=== PATIENT | male | born 1985 | race Hispanic/Latino ===

== ENCOUNTER 2018-08-06 23:15 | Inpatient (IN) | payer SELFPAY ==
[2018-08-07 00:10] LABS: #Eosinphils 0.1 thou/uL (0.0-0.7); #Lymphocytes 0.9 thou/uL (1.20-3.40); #Monocytes 0.5 thou/uL (0.11-0.59); #Neutrophils 7.6 thou/uL (1.40-6.50); %Basophils 0.3 % (0.0-1.0); %Eosinophils 0.9 % (0.0-10.0); %Lymphocytes 9.4 % (21.0-51.0); %Monocytes 5.4 % (0.0-10.0); Hemoglobin 15.5 g/dL (14.0-18.0); Mean Corpuscular HGB CONC 32.9 g/dL (32.0-36.0); Mean Corpuscular Hemoglobin 27.9 pg (27.0-31.0); Mean Platelet Volume 8.1 fL (7.4-10.4); Platelet Count 178 thou/uL (130-400); RBC Distribution Width 12.4 % (11.5-14.5); Red Blood Cell (RBC) Count 5.55 mill/uL (4.70-6.10); White Blood Cell (WBC) Count 9.1 thou/uL (4.8-10.8)
[2018-08-07 00:31] LABS: ALT (SGPT) 1052 U/L (8-55); AST (SGOT) 555 U/L (5-34); Albumin 4.5 g/dL (3.5-5.0); Alkaline Phosphatase 214 U/L (40-150); Anion Gap 11 mmol/L (10-20); BUN (Urea Nitrogen) 12 mg/dL (8.9-20.6); Bilirubin, Total 6.2 mg/dL (0.2-1.2); Calc. Creatinine Clearance 0 mL/min (70-130); Calcium 9.4 mg/dL (7.8-10.44); Carbon Dioxide 27 mmol/L (22-29); Chloride 102 mmol/L (98-107); Estimated GFR-MDRD Greater than 90; Globulin 3.6 g/dL (2.4-3.5); Glucose 131 mg/dL (70-105); Lipase 757 U/L (8-78); Potassium 3.8 mmol/L (3.5-5.1); Protein, Total 8.1 g/dL (6.0-8.3); Sodium 136 mmol/L (136-145)
[2018-08-07] MEDS ORDERED: CEFAZOLIN 1 GM VIAL ONE (01:23)
[2018-08-07] MEDS ORDERED: Ondansetron PF 4 MG/2 ML Vial ONE ×2 (01:23→14:49)
[2018-08-07] MEDS ORDERED: Morphine 4 MG/ML VIAL ONE (01:23)
[2018-08-07] MEDS ORDERED: Ketorolac Tromethamine 30 MG/ML VIAL ONE (01:23)
[2018-08-07 01:43] LABS: Acetaminophen Less than 6.0 mcg/mL (10.0-30.0); Alcohol Less than 10 mg/dL (Less than 10); Salicylate Less than 8.0 mg/dL (15.0-30.0)
[2018-08-07 01:51] LABS: PTT 28.1 SEC (22.9-36.1); Prothrombin Time 13.1 SEC (12.0-14.7)
[2018-08-07 02:11] LABS: Bilirubin Large (Negative); Blood, Urine Moderate (Negative); Clarity CLEAR (Clear); Glucose, Urine (Dipstick) 100 mg/dL (Negative); Leukocyte Small (Negative); Nitrite Positive (Negative); Protein, Urine (Dipstick) 100 mg/dL (Neg-Trace); Specific Gravity, Urine 1.034 (1.002-1.036); pH, Urine 5.5 (5.0-9.0)
[2018-08-07 02:13] LABS: Bacteria/HPF None Seen HPF (None Seen); Hyaline Casts/LPF 0-3 HYALINE CAST LPF (0-3 Hyaline); Pathc Cast-AUWi Flag 0.13 (0-2.49); Squamous Epithelial None Seen HPF (0-3); WBC/HPF 0-3 HPF (0-3)
[2018-08-07 02:17] LABS: HBCM Index 0.08 S/CO (0-0.79); HBSAg Index 0.31 S/CO (0-0.99); Hep A IgM AB Non-Reactive (NonReactive); Hep A IgM S/CO 0.17 S/CO (0-0.79); Hep B Surf Ag Non-Reactive S/CO (NonReactive); Hep C IgG Ab Non-Reactive (NonReactive); Hep C Index 0.12 S/CO (0-0.79); Hepatitis B Core IgM Abs Non-Reactive (NonReactive)
[2018-08-07] MEDS ORDERED: Ondansetron PF 4 MG/2 ML Vial IVP PRN ×2 (02:32→10:10)
[2018-08-07] MEDS ORDERED: Acetaminophen 325 MG TAB PO PRN (02:32)
[2018-08-07] MEDS ORDERED: Morphine 4 MG/ML VIAL SLOW IVP PRN (02:35)
--- NOTE | 2018-08-07 02:38 | PDOC.EVN ---
Event Note - Event Note Event Note: H&P [id number]
[2018-08-07] MEDS ORDERED: Promethazine HCl 25 MG/ML VIAL ONE (03:08)
[2018-08-07 03:52] LABS: #Eosinphils 0.1 thou/uL (0.0-0.7); #Lymphocytes 0.8 thou/uL (1.20-3.40); #Monocytes 0.4 thou/uL (0.11-0.59); #Neutrophils 7.6 thou/uL (1.40-6.50); %Basophils 0.1 % (0.0-1.0); %Eosinophils 0.6 % (0.0-10.0); %Lymphocytes 8.7 % (21.0-51.0); %Neutrophils 86.6 % (42.0-75.0); Hemoglobin 14.4 g/dL (14.0-18.0); Mean Corpuscular HGB CONC 32.8 g/dL (32.0-36.0); Mean Corpuscular Hemoglobin 27.9 pg (27.0-31.0); Mean Corpuscular Volume 85.2 fL (78.0-98.0); Mean Platelet Volume 8.3 fL (7.4-10.4); Platelet Count 177 thou/uL (130-400); RBC Distribution Width 12.3 % (11.5-14.5); Red Blood Cell (RBC) Count 5.16 mill/uL (4.70-6.10); White Blood Cell (WBC) Count 8.8 thou/uL (4.8-10.8)
[2018-08-07 04:07] LABS: Anion Gap 13 mmol/L (10-20); BUN (Urea Nitrogen) 13 mg/dL (8.9-20.6); Calc. Creatinine Clearance 0 mL/min (70-130); Calcium 9.1 mg/dL (7.8-10.44); Carbon Dioxide 24 mmol/L (22-29); Chloride 103 mmol/L (98-107); Estimated GFR-MDRD Greater than 90; Glucose 138 mg/dL (70-105); Potassium 3.3 mmol/L (3.5-5.1); Sodium 137 mmol/L (136-145)
[2018-08-07 05:46] VITALS: BMI 40.2
[2018-08-07] MEDS: MEROPENEM 1 GM/50 ML 1 GM in Premix Bag 1 BAG IVPB SCH ×3 (06:24→21:22)
[2018-08-07] MEDS: D5 1/2 NS w/20 mEq KCL 1,000 ML IV SCH ×3 (08:36→23:22)
--- NOTE | 2018-08-07 09:43 | ULT ---
RIGHT UPPER QUADRANT ABDOMINAL PAIN: INDICATIONS: Epigastric abdominal pain. FINDINGS: There is fatty infiltration of the liver. There are small stones within the gallbladder neck, withou t evidence of a sonographic Moe sign, gallbladder wall thickening, or pericholecystic edema. The common bile duct measures 5.8 mm, which is normal. The right kidney measures 11.2 cm in length. No focal renal lesion or hydronephrosis is evident. The pancreas is largely obscured by overlying bowel gas. IMPRESSION: 1. Fatty liver. 2. Cholelithiasis. POS: BH
--- NOTE | 2018-08-07 09:47 | CT ---
CT OF THE ABDOMEN AND PELVIS WITH IV CONTRAST: INDICATION: Sharp abdominal pain radiating to the back. COMPARISON: None. FINDINGS: Lung bases are clear. There is fatty infiltration of the liver. Known gallstones within the gallbladder neck are not as we ll seen as on the recently performed right upper quadrant ultrasound dated 06/09/2018. The pancreas, adrenal glands, and kidneys are normal-appearing. The spleen is normal-appearing. No free fluid or enlarged lymph nodes are evident. There is a normal appendix in the right lower quadrant. The bladder is partially decompressed. The rectum and perirectal soft tissues are unremarkable-appearing. The small bowel is of normal caliber. No definite acute osseous abnormality is evident. IMPRESSION: 1. No CT explanation for the patient's abdominal pain. 2. Fatty liver. 3. Normal appendix. POS: BH
[2018-08-07] MEDS ORDERED: Pantoprazole 40 MG VIAL IVP SCH ×2 (10:11→10:15)
--- NOTE | 2018-08-07 10:37 | CON ---
DATE OF CONSULTATION: 08/07/2018 CHIEF COMPLAINT: Epigastric pain. HISTORY OF PRESENT ILLNESS: This is a 33-year-old male who presents with severe epigastric pain since last night after dinner, associated with nausea and vomiting. No change in stools. No fevers or chills. He has never had pain like this before. No known previous known history of gallstones, jaundice, or pancreatitis. Found to have pancreatitis and gallstones on his workup in the emergency room. He denies alcohol. PAST MEDICAL HISTORY: Negative. PAST SURGICAL HISTORY: He denies. MEDICATIONS: Taken daily none. ALLERGIES: NO KNOWN DRUG ALLERGIES. SOCIAL HISTORY: No smoking, alcohol, or other drugs. REVIEW OF SYSTEMS: A 10-system review of systems otherwise negative unless described above. PHYSICAL EXAMINATION: VITAL SIGNS: Blood pressure 106/65, pulse 71, respirations 18, he is afebrile. HEENT: Icteric sclerae. Oropharynx clear. NECK: No lymphadenopathy. CHEST: Clear. HEART: Regular rate and rhythm. ABDOMEN: Soft, tender epigastric with localized guarding without rebound. EXTREMITIES: No ischemia or edema to extremities. LABORATORY DATA: White blood cell count is 8, hemoglobin 14, platelet count is 177. Sodium 137, potassium 3.3, creatinine 0.78 early this morning, bilirubin 6.2, AST and ALT are 5555 and 1052, and alkaline phosphatase 214, lipase 757. Urine shows moderate blood, large bilirubin. CT of the abdomen shows no obvious significant pancreatitis. Ultrasound of the abdomen, fatty liver, cholelithiasis, common bile duct is 5.8 mm. ASSESSMENT: Gallstone pancreatitis. PLAN: No surgery planned for today. I have discussed with Dr. Maximilian Lieberman. He is going to decide whether he needs ERCP or continued observation. Will need cholecystectomy before discharge. We will follow with you. Job ID: [id number]
[2018-08-07 12:17] LABS: ALT (SGPT) 988 U/L (8-55); AST (SGOT) 409 U/L (5-34); Albumin 4.1 g/dL (3.5-5.0); Alkaline Phosphatase 223 U/L (40-150); Anion Gap 10 mmol/L (10-20); BUN (Urea Nitrogen) 15 mg/dL (8.9-20.6); Bilirubin, Total 5.1 mg/dL (0.2-1.2); Calc. Creatinine Clearance 212 mL/min (70-130); Calcium 8.9 mg/dL (7.8-10.44); Carbon Dioxide 28 mmol/L (22-29); Chloride 103 mmol/L (98-107); Estimated GFR-MDRD Greater than 90; Globulin 3.2 g/dL (2.4-3.5); Glucose 112 mg/dL (70-105); Lipase 135 U/L (8-78); Potassium 3.7 mmol/L (3.5-5.1); Protein, Total 7.3 g/dL (6.0-8.3); Sodium 137 mmol/L (136-145)
--- NOTE | 2018-08-07 13:02 | CON ---
DATE OF CONSULTATION: 08/07/2018 CHIEF COMPLAINT: Abdominal pain. HISTORY OF PRESENT ILLNESS: Mr. Julian is a 33-year-old man, who had onset of epigastric sharp pain on Wednesday, 2 days ago. The pain radiates through to his back. He had nausea and vomiting all day yesterday, associated with that. He has had some similar pain on and off for years, which is attributed to acid reflux. However, on presentation to the ER, he was found to have elevated pancreatic enzymes consistent with acute pancreatitis as well as elevated liver tests and gallstones consistent with gallstone pancreatitis. He has had no fever associated with this. No diarrhea, constipation, or lower abdominal pain. His weight has been stable. PAST MEDICAL HISTORY: Otherwise negative. PAST SURGICAL HISTORY: Negative. FAMILY HISTORY: Negative for GI malignancy. SOCIAL HISTORY: No alcohol, tobacco, or drugs. ALLERGIES: NO KNOWN DRUG ALLERGIES. MEDICATIONS: Prior to admission, none. REVIEW OF SYSTEMS: Negative x10 systems reviewed, except as stated in the history of present illness. IMAGING: He had a CT scan of the abdomen and pelvis, which was negative last night. He also had ultrasound of the right upper quadrant, which showed cholelithiasis. Fatty liver was seen. His common bile duct was only 5.8 mm. LABORATORY DATA: White blood cell count 8.8, hemoglobin 14.4, and platelets 177. INR 1.0. Creatinine is 0.86, bilirubin is 5.1 now and it was 6.2 at midnight, AST 409, ALT 988, alkaline phosphatase 223 up from 214, and lipase 757 at midnight and down to 135 now. IMPRESSION: Gallstone pancreatitis. He has significantly elevated transaminases along with a bilirubin that remains greater than 5 even after hydration over the last 12 hours. His transaminases remain close to a 1000 on his ALT and his alkaline phosphatase trended up very slightly. His pain is actually much improved and he very well might have passed a stone. His lipase has trended down. His bile duct was not reported as dilated by the admission ultrasound. Viral hepatitis screen is negative. Given the persistently significantly elevated bilirubin and transaminases, the concern is that he has a persistent stone in the bile duct and endoscopic retrograde cholangiopancreatography is indicated at this point. He does not have signs of cholangitis now. RECOMMENDATIONS: 1. We will plan for ERCP today. 2. He should have cholecystectomy prior to discharge. 3. Risks and benefits of ERCP were discussed in detail with the patient and his family. Job ID: [id number]
[2018-08-07] MEDS ORDERED: ISOVUE-370 76%-LOCM 1 ML ONE (14:03)
[2018-08-07] MEDS ORDERED: Iothalamate Meglumine 60% 50 ML VIAL FS ONE (14:11)
[2018-08-07] MEDS ORDERED: Indomethacin 50 MG SUPP ONE (14:11)
[2018-08-07] MEDS ORDERED: Midazolam HCl 2 mg/2 ml Vial ONE (14:12)
[2018-08-07] MEDS ORDERED: Fentanyl 100 MCG/2 ML VIAL ONE (14:12)
[2018-08-07] MEDS ORDERED: Glycopyrrolate 0.2 MG/ML 5 ML SYRINGE ONE (14:49)
[2018-08-07] MEDS ORDERED: Lidocaine 1% PF 5 ML VIAL ONE (14:49)
[2018-08-07] MEDS ORDERED: Dexamethasone 20 MG/5 ML VIAL ONE (14:49)
[2018-08-07] MEDS ORDERED: PROPOFOL 200 MG/20 ML VIAL ONE (14:49)
[2018-08-07] MEDS ORDERED: Rocuronium Bromide 10 MG/ML (10ML VIAL) ONE (14:49)
[2018-08-07] MEDS ORDERED: Ondansetron HCl/PF 4 MG/2 ML Vial IVP PRN (15:30)
[2018-08-07] MEDS ORDERED: Promethazine HCl 25 MG/ML VIAL SLOW IVP PRN (15:30)
[2018-08-07] MEDS ORDERED: Promethazine HCl 25 MG/ML VIAL IM PRN (15:30)
--- NOTE | 2018-08-07 15:39 | RAD ---
ERCP: HISTORY: ERCP FINDINGS/IMPRESSION: Multiple spot fluoroscopic images of the right upper quadrant demonstrate opacification of intrahepat ic and extrahepatic biliary system. A catheter is noted within the common duct. Multiple small foci of lucency are seen within a portion of the distal common duct on several of the images. These may reflect stones or gas bubbles. Correlate with real-time findings is recommended. POS: OLIVIA
--- NOTE | 2018-08-07 18:16 | OP ---
DATE OF PROCEDURE: 08/07/2018 PROCEDURE PERFORMED: Procedure endoscopic retrograde cholangiopancreatography with sphincterotomy. PREOPERATIVE DIAGNOSES: Gallstone pancreatitis with persistently elevated transaminases and bilirubin greater than 5 and suspected choledocholithiasis. DESCRIPTION OF PROCEDURE: Informed consent was obtained from the patient. He was sedated with general anesthesia and placed in the prone position. The duodenoscope was advanced easily to the second portion of the duodenum. The ampulla was identified and appeared unremarkable overall. The common bile duct was cannulated easily, selectively with a guidewire. Cholangiogram was performed. There was dilation of the common bile duct to 10 mm. The intra and extrahepatic ducts were mildly dilated as well. The cystic duct did partially fill and there was a stone noted in the cystic duct. A complete sphincterotomy was performed. Balloon sweep of the bile duct with a 12-mm balloon confirms the extra hepatic ducts and common bile duct to be clear. Occlusion cholangiogram was clear. The 12-mm balloon passes easily through the sphincterotomy without resistance. IMPRESSION: 1. Cholangiogram shows mild dilation of the common bile duct at 10 mm and mild dilation of the intra and extrahepatic ducts. 2. Stone is identified in the cystic duct, but not accessed by endoscopic retrograde cholangiopancreatography today. 3. Complete sphincterotomy was performed. A 12-mm balloon passes through the sphincterotomy site without resistance. 4. Occlusion cholangiogram confirmed the duct to be clear. RECOMMENDATIONS: Laparoscopic cholecystectomy. I did discuss the findings of the cystic duct stone with Dr. Barrera as well. Job ID: [id number]
[2018-08-08] MEDS: MEROPENEM 1 GM/50 ML 1 GM in Premix Bag 1 BAG IVPB SCH ×3 (05:41→21:05)
--- NOTE | 2018-08-08 07:21 | HP ---
CHIEF COMPLAINT: Abdominal pain, nausea, and vomiting. HISTORY OF PRESENT ILLNESS: This is a 33-year-old male, complaining of nausea, vomiting, and abdominal pain. He states that the pain started earlier today. The patient said that he has a sharp stabbing pain that radiates to the back, epigastric region. The patient denies any other associated symptoms. No alleviating or aggravating factors. The patient was seen and examined in the ER. Pain is 10/10. Family is at bedside. All questions were answered. ALLERGIES: NO KNOWN MEDICATION ALLERGIES. PAST MEDICAL HISTORY: None. SOCIAL HISTORY: Social drinker. Nonsmoker. FAMILY HISTORY: None. HOME MEDICATIONS: None. REVIEW OF SYSTEMS: All systems reviewed, pertinent positives in HPI, otherwise negative. PHYSICAL EXAMINATION: VITAL SIGNS: Blood pressure is 124/88, heart rate of 100, temperature of 99.9, and O2 saturation 99% on room air. GENERAL: The patient is lying in bed, in mild discomfort, appears nauseous and attempted to be vomited, but no vomitus coming out. HEENT: Pupils are equal, round, and reactive to light and accommodation. Oral cavity is moist and pink. Extraocular muscles are intact. CARDIOVASCULAR: Regular rate and rhythm. S1 and S2. No murmurs, rubs, or gallops appreciated. PULMONARY: Clear to auscultation bilaterally. No respiratory distress. ABDOMEN: Positive bowel sounds. Soft. Tender to palpation in the epigastric region. No rebound or guarding. EXTREMITIES: 2+ peripheral pulses. No cyanosis, clubbing, or edema. NEUROLOGIC: Cranial nerves 2 through 12 are intact. Oral cavity is moist and pink. LABORATORY DATA: CBC reviewed. Coagulation panel reviewed. Basic metabolic panel shows elevated LFTs, reviewed. UA positive for UTIs with proteinuria. Toxicology report negative thus far, plasma alcohol, salicylate and acetaminophen negative. Hepatitis panel negative for A, B, and C, acute. DIAGNOSTIC DATA: CT scan shows edematous gallbladder with slightly dilated biliary duct and a stone in the cystic duct as well, potentially causing some obstruction. ASSESSMENT: 1. Gallstone pancreatitis. 2. 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 3. Abdominal pain. 4. Nausea and vomiting. PLAN: At this point in time, we will admit the patient to Internal Medicine Team. We will consult GI and Surgery. IV fluids and IV antibiotics. Labs in the morning, n.p.o. for now as part of our surgical intervention. Case and plan were discussed with the patient and the patient's family at length, they wish to remain full code. They understand and agree with this plan. Job ID: [id number]
[2018-08-08] MEDS: Pantoprazole 40 MG VIAL IVP SCH (08:26)
[2018-08-08] MEDS: D5 1/2 NS w/20 mEq KCL 1,000 ML IV SCH ×3 (08:28→19:37)
[2018-08-08 09:16] LABS: #Eosinphils 0.2 thou/uL (0.0-0.7); #Lymphocytes 1.9 thou/uL (1.20-3.40); #Monocytes 0.5 thou/uL (0.11-0.59); #Neutrophils 6.3 thou/uL (1.40-6.50); %Basophils 0.5 % (0.0-1.0); %Eosinophils 2.4 % (0.0-10.0); %Lymphocytes 21.5 % (21.0-51.0); %Monocytes 5.1 % (0.0-10.0); %Neutrophils 70.5 % (42.0-75.0); Hemoglobin 14.5 g/dL (14.0-18.0); Mean Corpuscular Hemoglobin 27.8 pg (27.0-31.0); Mean Corpuscular Volume 86.9 fL (78.0-98.0); Mean Platelet Volume 8.2 fL (7.4-10.4); Platelet Count 185 thou/uL (130-400); RBC Distribution Width 12.6 % (11.5-14.5); White Blood Cell (WBC) Count 8.9 thou/uL (4.8-10.8)
[2018-08-08 09:43] LABS: ALT (SGPT) 711 U/L (8-55); AST (SGOT) 131 U/L (5-34); Alkaline Phosphatase 205 U/L (40-150); Anion Gap 11 mmol/L (10-20); BUN (Urea Nitrogen) 14 mg/dL (8.9-20.6); Bilirubin, Total 1.9 mg/dL (0.2-1.2); Calc. Creatinine Clearance 170 mL/min (70-130); Calcium 8.9 mg/dL (7.8-10.44); Carbon Dioxide 27 mmol/L (22-29); Chloride 104 mmol/L (98-107); Estimated GFR-MDRD 81; Glucose 102 mg/dL (70-105); Lipase 41 U/L (8-78); Magnesium 2.4 mg/dL (1.6-2.6); Potassium 4.3 mmol/L (3.5-5.1); Protein, Total 7.3 g/dL (6.0-8.3); Sodium 138 mmol/L (136-145)
--- NOTE | 2018-08-08 10:11 | HP ---
SUBJECTIVE: Mr. Julian feels better today. He had ERCP yesterday and stone extraction by Dr. Lieberman. No significant nausea. He is afebrile. His vital signs are stable. His urine output is adequate. His abdomen is soft, bartender in the epigastric area. His bilirubin is down to 1.9, alkaline phosphatase 205. Lipase is normal. ASSESSMENT: Postop ERCP, improving LFTs. PLAN: Laparoscopic cholecystectomy either Wednesday or Wednesday of this week before discharge. Job ID: [id number]
--- NOTE | 2018-08-08 13:57 | PRG ---
DATE OF SERVICE: 08/08/2018 SUBJECTIVE: Mr. Julian has no abdominal pain today. OBJECTIVE: VITAL SIGNS: Temperature 98.0, pulse 63, blood pressure 129/84. LUNGS: Clear to auscultation bilaterally. HEART: Regular rate and rhythm without murmur. ABDOMEN: Soft, nontender, nondistended. Bowel sounds are present. EXTREMITIES: No lower extremity edema. LABORATORY DATA: White blood cell count 8.9, hemoglobin 14.5, platelets 185. Creatinine 1.07. Bilirubin is down to 1.9 from 5.1. AST down to 131 from 409, ALT down to 711 from 988, alkaline phosphatase is 205, down from 223. Lipase is back to normal at 41. IMPRESSION: 1. Gallstone pancreatitis, resolving. 2. Choledocholithiasis, suspected appears to have passed a stone. Endoscopic retrograde cholangiopancreatography with sphincterotomy is now clear and his liver tests are improving. RECOMMENDATIONS: 1. Laparoscopic cholecystectomy when he is able. 2. There is a possible stone in the cystic duct. However, he does have a sphincterotomy that the 12 mm balloon passes through easily and it is possible that stone could be milked back at the time of cholecystectomy. It could be potentially pushed forward through the sphincterotomy as well. Likely if it did fall into the bile duct, it would pass spontaneously given the sphincterotomy. 3. I will sign off for now. Please call if GI can be of assistance. Job ID: [id number]
--- NOTE | 2018-08-08 17:56 | PDOC.PN ---
- Subjective Encounter Start Date: 08/08/18 Encounter Start Time: 15:00 Patient seen and examined for Gallstone Pancreatitis. No N/V/Abd pain. No new complaints. No overnight events - Objective Resuscitation Status - Order Detail: 08/07/18 02:32 Resuscitation Status Routine Resuscitation Status: FULL: Full Resuscitation Discussed with: patient MAR Reviewed: Yes Vital Signs & Weight: Vital Signs (12 hours) Temp Pulse Resp BP Pulse Ox 08/08/18 15:28 98.2 F 70 12 128/83 97 08/08/18 11:49 98.0 F 63 16 129/84 98 08/08/18 08:00 97.4 F L 62 16 117/73 97 Weight Weight 264 lb 14.4 oz Result Diagrams: 08/09/18 05:33 08/09/18 05:33 Additional Labs: Laboratory Tests 08/07/18 08/07/18 08/08/18 00:02 11:43 09:06 Total Bilirubin 6.2 H 5.1 H 1.9 H AST 555 H 131 H ALT 1052 H 711 H Alkaline Phosphatase 214 H 205 H Lipase 757 H 135 H 41 Phys Exam - Physical Examination Constitutional: NAD Respiratory: no wheezing, no rhonchi Cardiovascular: RRR, no rub Gastrointestinal: soft, non-tender, positive bowel sounds Musculoskeletal: no edema Neurological: moves all 4 limbs Dx/Plan - Plan DVT proph w/SCDs 1. Gallstone Pancreatitis/Abn LFTs 2. Cholelithiasis 3. Morbid Obesity BMI 40.3 4. Hypokalemia 5. N/V/Abd pain PLAN: s/p ERCP LFTs improving Cont Atbx/IVF AM labs Surg/GI input appreciated Cont current meds as below Review of Systems - Review of Systems Respiratory: negative: Cough, Dry, Shortness of Breath, Hemoptysis, SOB with Excertion, Pleuritic Pain, Sputum, Wheezing Cardiovascular: negative: chest pain, palpitations, orthopnea, paroxysmal nocturnal dyspnea, edema, light headedness, other - Medications/Allergies Allergies/Adverse Reactions: Allergies Allergy/AdvReac Type Severity Reaction Status Date / Time No Known Allergies Allergy Unverified 08/07/18 02:35 Medications: Current Medications Acetaminophen (Tylenol) 650 mg PO Q4H PRN PRN Reason: Headache/Fever/Mild Pain (1-3) Meropenem 1 gm/ Device 50 mls @ 100 mls/hr IVPB Q8HR [facility] Last Admin: 08/08/18 14:08 Dose: 50 mls Potassium Chloride/Dextrose/Sod Cl (D5 1/2 Ns W/20 Meq Kcl) 1,000 mls @ 70 mls/ hr IV .[id number] [facility] Morphine Sulfate (Morphine) 2 mg SLOW IVP Q4H PRN PRN Reason: Moderate to Severe Pain (6-10) Ondansetron HCl (Zofran) 4 mg IVP Q6H PRN PRN Reason: Nausea/Vomiting Ondansetron HCl (Zofran) 4 mg IVP Q6H PRN PRN Reason: Nausea/Vomiting Pantoprazole Sodium (Protonix) 40 mg IVP DAILY [facility] Last Admin: 08/08/18 08:26 Dose: 40 mg Sodium Chloride (Flush - Normal Saline) 10 ml IVF Q12HR PRN PRN Reason: Saline Flush Last Admin: 08/07/18 10:52 Dose: 10 ml
[2018-08-09] MEDS: MEROPENEM 1 GM/50 ML 1 GM in Premix Bag 1 BAG IVPB SCH ×2 (05:17→15:09)
[2018-08-09 05:50] LABS: #Eosinphils 0.4 thou/uL (0.0-0.7); #Lymphocytes 2.5 thou/uL (1.20-3.40); #Monocytes 0.6 thou/uL (0.11-0.59); #Neutrophils 4.6 thou/uL (1.40-6.50); %Basophils 0.3 % (0.0-1.0); %Eosinophils 5.2 % (0.0-10.0); %Lymphocytes 30.4 % (21.0-51.0); %Monocytes 7.1 % (0.0-10.0); Hemoglobin 14.7 g/dL (14.0-18.0); Mean Corpuscular HGB CONC 32.6 g/dL (32.0-36.0); Mean Corpuscular Hemoglobin 27.9 pg (27.0-31.0); Mean Corpuscular Volume 85.7 fL (78.0-98.0); Mean Platelet Volume 7.7 fL (7.4-10.4); Platelet Count 178 thou/uL (130-400); RBC Distribution Width 12.4 % (11.5-14.5); Red Blood Cell (RBC) Count 5.28 mill/uL (4.70-6.10); White Blood Cell (WBC) Count 8.1 thou/uL (4.8-10.8)
[2018-08-09 06:17] LABS: ALT (SGPT) 492 U/L (8-55); AST (SGOT) 68 U/L (5-34); Albumin 3.9 g/dL (3.5-5.0); Alkaline Phosphatase 179 U/L (40-150); Anion Gap 10 mmol/L (10-20); BUN (Urea Nitrogen) 14 mg/dL (8.9-20.6); Bilirubin, Total 1.4 mg/dL (0.2-1.2); Calc. Creatinine Clearance 173 mL/min (70-130); Carbon Dioxide 31 mmol/L (22-29); Chloride 101 mmol/L (98-107); Estimated GFR-MDRD 82; Globulin 3.3 g/dL (2.4-3.5); Glucose 95 mg/dL (70-105); Lipase 46 U/L (8-78); Potassium 3.7 mmol/L (3.5-5.1); Protein, Total 7.2 g/dL (6.0-8.3); Sodium 138 mmol/L (136-145)
[2018-08-09] MEDS: D5 1/2 NS w/20 mEq KCL 1,000 ML IV SCH (10:21)
[2018-08-09] MEDS: Pantoprazole 40 MG VIAL IVP SCH (10:21)
[2018-08-09] MEDS ORDERED: Rocuronium Bromide 10 MG/ML (10ML VIAL) ONE (12:07)
[2018-08-09] MEDS ORDERED: Ondansetron PF 4 MG/2 ML Vial ONE (12:07)
[2018-08-09] MEDS ORDERED: PROPOFOL 200 MG/20 ML VIAL ONE (12:07)
[2018-08-09] MEDS ORDERED: Dexamethasone 20 MG/5 ML VIAL ONE (12:07)
[2018-08-09] MEDS ORDERED: Lidocaine 1% PF 5 ML VIAL ONE (12:07)
[2018-08-09] MEDS ORDERED: Ketorolac Tromethamine 30 MG/ML VIAL ONE (12:07)
[2018-08-09] MEDS ORDERED: Glycopyrrolate 0.2 MG/ML 5 ML SYRINGE ONE (12:07)
[2018-08-09] MEDS ORDERED: Bupivacaine/Epinephrine 0.25% 30 ML VIAL ONE (12:08)
[2018-08-09] MEDS ORDERED: Fentanyl 100 MCG/2 ML VIAL ONE ×4 (12:21→14:11)
[2018-08-09] MEDS ORDERED: Midazolam HCl 2 mg/2 ml Vial ONE (12:21)
[2018-08-09] MEDS ORDERED: Morphine 4 MG/ML VIAL SLOW IVP PRN (16:39)
[2018-08-09] MEDS ORDERED: HYDROcodone/Acetaminophen 7.5/325 mg Tablet PO PRN ×2 (16:39)
[2018-08-09] MEDS ORDERED: Morphine 2 MG/ML SYRINGE SLOW IVP PRN (16:39)
--- NOTE | 2018-08-09 20:50 | PDOC.PN ---
- Subjective Encounter Start Date: 08/09/18 Encounter Start Time: 11:30 Patient seen and examined for Gallstone pancreatitis. No N/V. No new complaints. No overnight events - Objective Resuscitation Status - Order Detail: 08/07/18 02:32 Resuscitation Status Routine Resuscitation Status: FULL: Full Resuscitation Discussed with: patient MAR Reviewed: Yes Vital Signs & Weight: Vital Signs (12 hours) Temp Pulse Resp BP Pulse Ox 08/09/18 20:00 98.1 F 85 20 129/85 95 08/09/18 18:55 112 H 20 116/76 08/09/18 18:00 105 H 20 132/88 08/09/18 17:00 98 20 113/93 H 08/09/18 15:55 82 20 126/82 08/09/18 15:25 100 20 122/82 08/09/18 14:55 79 20 136/85 94 L 08/09/18 14:25 97.6 F 69 20 108/73 94 L 08/09/18 11:30 98.3 F 75 18 142/89 H 97 Weight Weight 264 lb 14.4 oz I&O: 08/08/18 08/09/18 08/10/18 06:59 06:59 06:59 Intake Total 2500 Output Total 600 Balance 1900 Result Diagrams: 08/09/18 05:33 08/09/18 05:33 Phys Exam - Physical Examination Constitutional: NAD Respiratory: no wheezing, no rhonchi Cardiovascular: RRR, no rub Gastrointestinal: soft, non-tender, positive bowel sounds Musculoskeletal: no edema Dx/Plan - Plan DVT proph w/SCDs 1. Gallstone Pancreatitis/Abn LFTs - improving 2. Cholelithiasis 3. Morbid Obesity BMI 40.3 4. Hypokalemia 5. N/V/Abd pain PLAN: s/p ERCP Cholecystectomy today DC Atbx Cont current meds as below Review of Systems - Review of Systems Respiratory: negative: Cough, Dry, Shortness of Breath, Hemoptysis, SOB with Excertion, Pleuritic Pain, Sputum, Wheezing Cardiovascular: negative: chest pain, palpitations, orthopnea, paroxysmal nocturnal dyspnea, edema, light headedness, other - Medications/Allergies Allergies/Adverse Reactions: Allergies Allergy/AdvReac Type Severity Reaction Status Date / Time No Known Allergies Allergy Unverified 08/07/18 02:35 Medications: Current Medications Acetaminophen (Tylenol) 650 mg PO Q4H PRN PRN Reason: Headache/Fever/Mild Pain (1-3) Hydrocodone Bitart/Acetaminophen ([place] 7.5/325) 1 tab PO Q6H PRN PRN Reason: Mild Pain (1-3) Hydrocodone Bitart/Acetaminophen ([place] 7.5/325) 2 tab PO Q6H PRN PRN Reason: Moderate Pain (4-6) Morphine Sulfate (Morphine) 2 mg SLOW IVP Q4H PRN PRN Reason: Moderate to Severe Pain (6-10) Last Admin: 08/09/18 16:11 Dose: 2 mg Morphine Sulfate (Morphine) 2 mg SLOW IVP Q2H PRN PRN Reason: Mild-Moderate Pain (1-5) Morphine Sulfate (Morphine) 4 mg SLOW IVP Q2H PRN PRN Reason: Moderate to Severe Pain (6-10) Ondansetron HCl (Zofran) 4 mg IVP Q6H PRN PRN Reason: Nausea/Vomiting Ondansetron HCl (Zofran) 4 mg IVP Q6H PRN PRN Reason: Nausea/Vomiting Pantoprazole Sodium (Protonix) 40 mg PO DAILY [facility] Sodium Chloride (Flush - Normal Saline) 10 ml IVF Q12HR PRN PRN Reason: Saline Flush Last Admin: 08/07/18 10:52 Dose: 10 ml
--- NOTE | 2018-08-10 08:56 | PRG ---
DATE OF SERVICE: 08/10/2018 SUBJECTIVE: Postop day 1, lap joe. Mr. Julian is doing well. He tolerated the GI, soft diet overnight. His pain is controlled. He is ambulatory. He is afebrile. Vital signs are stable. Wounds are healing well. ASSESSMENT: Gallstone pancreatitis, resolved; status post laparoscopic cholecystectomy and endoscopic retrograde cholangiopancreatography. PLAN: Discharge home today. Follow up with me in 2 weeks. Prescription for hydrocodone on the chart. Job ID: [id number]
[2018-08-10 14:13] VITALS: BP 135/80; TEMP 98.3
--- NOTE | 2018-08-10 15:05 | DIS ---
DATE OF ADMISSION: 08/07/2018 DATE OF DISCHARGE: 08/10/2018 DISCHARGE DISPOSITION: Home. FOLLOWUP: 1. Follow up with primary care physician at [facility] in 1 week. 2. Follow up with General Surgery, Dr. Barrera in 2 weeks. ALLERGIES: NO KNOWN DRUG ALLERGIES. DISCHARGE MEDICATIONS: None. The patient was seen and examined on the day of discharge. Denies any new complaints. No fever, chills, nausea, or vomiting reported. INPATIENT PROCEDURES: 1. On 08/07/2018, the patient underwent endoscopic retrograde cholangiopancreatography with cholangiogram and completes sphincterotomy. 2. On 08/09/2018, the patient underwent laparoscopic cholecystectomy. INPATIENT LANDSCAPE SUPERVISOR: 1. General Surgery, Dr. Barrera. 2. Gastroenterology, Dr. Lieberman. BRIEF HOSPITAL COURSE: The patient is a 33-year-old male with obesity, presented to the hospital with abdominal pain, nausea, and vomiting. His initial labs showed total bilirubin of 6.2 with AST 555, ALT 1052, and alkaline phosphatase 214. His lipase was 757. A CT scan of the abdomen and pelvis showed fatty liver without any acute findings. Right upper quadrant ultrasound showed cholelithiasis with common bile duct measuring 5.8 mm. Please refer to the history and physical for further details. The patient was admitted to the hospital with a diagnosis of gallstone pancreatitis. He was kept n.p.o. An ERCP was performed on 08/07/2018. His LFTs yesterday showed total bilirubin 1.4 with AST 68, ALT of 492, and alkaline phosphatase 179. His lipase was 46 yesterday. He also underwent laparoscopic cholecystectomy. He has been cleared by consultants for discharge. FINAL DIAGNOSES: 1. Gallstone pancreatitis. 2. Cholelithiasis/choledocholithiasis. 3. Abnormal liver function tests secondary to #1 and #2. 4. Morbid obesity with a BMI of 40.3. 5. Hypokalemia, replaced. 6. Nausea, vomiting, abdominal discomfort secondary to #1 and #2. SIGNIFICANT LABS: Acute hepatitis profile was negative. Acetaminophen level was normal. Urinalysis was negative for WBC or bacteria. Lipase on admission 757, yesterday was 46. Job ID: [id number]
== END 2018-08-10 13:05 | disposition home or self-care (01) | DRG 418 ==
LOC: ERS 23:15 → SURG A 08-07 04:28
PROVIDERS: ADMIT Internal Medicine; ATTEND Internal Medicine
PROC: 0FT44ZZ Resection of Gallbladder, Percutaneous Endoscopic Approach (ICD-10-PCS; principal; 2018-08-09)
DX: K85.10 Biliary acute pancreatitis without necrosis or infection (principal); Z68.41 Body mass index [BMI] 40.0-44.9, adult; E66.01 Morbid (severe) obesity due to excess calories; E87.6 Hypokalemia; K80.20 Calculus of gallbladder without cholecystitis without obstruction
CPT/HCPCS: 36415; 74177; 74330; 76705; 80048; 80053; 80074; 80076; 80307; 81003; 81015; 83690; 83735; 85025; 85610; 85730; 88304; 96361; 96365; 96375; C9113; J0690; J1100; J1885; J2001; J2185; J2250; J2270; J2405; J2550; J2704; J3010; Q9961; Q9966